=== PATIENT | female | born 1990 | race Two or more races ===

== ENCOUNTER 2022-05-30 19:57 | Emergency (ER) | payer MEDICAID, OTHER ==
[~2022-05-30] VITALS: Ht 170.2 cm; Wt 90.9 kg
[2022-05-30 20:27] VITALS: BP 133/76
[2022-05-30 21:46] LABS: Basophils # (auto) 0 10 ^3/uL (0-0.2); Basophils % (auto) 0.4 % (0.0-2.0); Eosinophils # (auto) 0.2 10 ^3/uL (0-0.8); Eosinophils % (auto) 2.4 % (0.0-7.0); Hematocrit 40.3 % (36.0-46.0); Hemoglobin 14.2 g/dL (12.2-16.2); Lymphocytes # (auto) 3.6 10 ^3/uL (0.4-5.4); Lymphocytes % (auto) 46.4 % (10.0-50.0); Mean Corpuscular Hemoglobin 31.2 pg (28.0-32.0); Mean Corpuscular Hgb Conc. 35.2 g/dL (32.0-36.0); Mean Corpuscular Volume 88.7 fL (80.0-100.0); Monocytes # (auto) 0.6 10 ^3/uL (0-1.3); Monocytes % (auto) 7.9 % (0.0-12.0); Neutrophils # (auto) 3.3 10 ^3/uL (1.6-8.6); Neutrophils % (auto) 42.9 % (37.0-80.0); Nucleated Red Blood Cells % 0.1 %; Red Blood Cells 4.54 10^6/uL (4.0-5.20); Red Cell Distribution Width 12.6 % (11.8-14.3); White Blood Cell 7.8 10^3/uL (4.4-10.8)
[2022-05-30 22:03] LABS: Albumin 3.6 g/dL (3.4-5.0); BUN/Creatinine Ratio 18.8 (10.0-20.0); Calcium 9.3 mg/dL (8.5-10.1); Magnesium 2.2 mg/dL (1.6-2.6); Potassium 3.6 mmol/L (3.5-5.1)
[2022-05-30 22:05] LABS: Bilirubin, Total 0.3 mg/dL (0.2-1.0); Total Protein 7.8 g/dL (6.4-8.2)
[2022-05-31 02:41] LABS: Urine Bacteria MANY /hpf (None Seen); Urine Blood 2+ /uL (Negative); Urine Mucus FEW (None Seen); Urine Specific Gravity 1.014 (1.001-1.035); Urine WBC 56 /hpf (0 - 5)
== END 2022-05-31 00:42 | disposition left against medical advice (07) ==
LOC: ER 19:57
DX: R00.2 Palpitations (principal)
CPT/HCPCS: 36415; 71045; 80053; 81001; 83735; 84484; 85025; 93005

== ENCOUNTER 2024-05-08 03:28 | Emergency (ER) | payer MEDICAID ==
[~2024-05-08] VITALS: Ht 170.2 cm; Wt 98.6 kg
--- NOTE | 2024-05-08 04:04 | ED.PDOC ---
History of Present Illness HPI Comments 33 y/o obese F presents with c/o non-radiating, bilateral pelvic and suprapubic abdominal pain, with associated nausea, today. Patient endorses on sudden and unprovoked onset of symptoms, with no prior history of, this morning, at 0250. She reports on Ibuprofen use prior to arrival, with no improvement or relief. Patient only reports significant history of cholecystectomy and denies any recent injuries, sick contact, spoiled food, or travel along with current . Patient denies any vomiting, diarrhea, urinary symptoms, fever, chills, or other associated symptoms or modifiers at this time. Chief Complaint: Pelvic Pain Time Seen by MD: 03:50 Reviewed Notes: Nurses Notes, Medications, Allergies Allergies: Coded Allergies: NO KNOWN ALLERGIES (Unverified , 05/30/22) Information Source: Patient Mode of Arrival: Ambulatory Severity: Moderate Timing: Hours Duration: Since onset Prehospital treatment: Pain Meds (Ibuprofen) Past Medical History PAST MEDICAL HISTORY: Denies Past Medical History (Other): obesity Surgical History: Cholecystectomy CLIENT ENGAGEMENT SPECIALIST History: Denies all CLIENT ENGAGEMENT SPECIALIST Hx Family History Family History: Reviewed,noncontributory to illness Social History Smoker: Non-Smoker Alcohol: Denies ETOH Use Drugs: Denies Drug Use Lives In: Home All Other Systems: Reviewed and Negative (Comprehensive systems review obtained and negative except for what is stated in the HPI.) Physical Exam General Appearance: Moderate Distress, Obese HEENT: Normal ENT Inspection, Pharynx Normal, TMs Normal Neck: Full Range of Motion, Non-Tender, Normal, Normal Inspection Respiratory: Chest Non-Tender, Lungs Clear, No Accessory Muscle Use, No Respir atory Distress, Normal Breath Sounds Cardiovascular: No Edema, No JVD, No Murmur, No Gallop, Normal Peripheral Pulses, Regular Rate/Rhythm Breast Exam: Deferred Gastrointestinal: No Organomegaly, Non Tender, No Pulsatile Mass, Normal Bowel Sounds, Soft Genitalia: Deferred Pelvic: Deferred Rectal: Deferred Extremities: No calf tenderness, Normal capillary refill, Normal inspection, Normal range of motion, Non-tender, No pedal edema Musculoskeletal : Apperance: Normal Neurologic: Alert, head of history II-XII nml as Tested, No Motor Deficits, Normal Affect, Normal Mood, No Sensory Deficits Cerebellar Function: Normal Reflexes: Normal Skin: Dry, Normal Color, Warm Peripheral Pulses: 3+ Radial (R), 3+ Radial (L) Lymphatic: No Adenopathy Was a procedure done? Was a procedure done?: No Differential Dx Considerations may include: ovarian cysts, ovarian torsion, , ectopic , PID, musculo skeletal pain, cystitis, pyelonephritis, nephrolithiasis, appendicitis, diverticulitis, among others X-Ray, Labs, Meds, VS Vital Signs Date Time Temp Pulse Resp B/P (MAP) Pulse Ox O2 Delivery O2 Flow Rate FiO2 05/08/24 08:05 66 18 96 Room Air* 0 21 05/08/24 08:05 98.1 66 18 114/61 (78) 96 98.1 05/08/24 06:54 97.9 65 12 112/62 (79) 97 97.9 05/08/24 03:36 98.2 100 20 136/73 (94) 97 98.2 Lab Test 05/08/24 05:33 05/08/24 04:02 Range/Units Urine Color Yellow Yellow Urine Clarity Ex.turbid Clear Urine pH 5.5 5.0-9.0 Urine Specific [place] 1.027 1.001-1.035 Urine Protein Trace H Negative Urine Ketones Negative Negative Urine Blood Negative Negative /uL Urine Nitrite Negative Negative Urine Bilirubin Negative Negative Urine Urobilinogen Normal Negative mg/dL Urine Leukocyte Esterase 1+ Negative /uL Urine RBC 4 0 - 4 /hpf Urine Microscopic WBC 6 H 0-5 /HPF Urine Squamous Epithelial Cells Mod <5 /hpf Urine Bacteria Few H None Seen /hpf Urine Mucus Few None Seen Urine Glucose Normal Normal mg/dL Urine Test Negative Negative White Blood Count 8.2 4.4-10.8 10^3/uL Red Blood Count 4.56 4.0-5.20 10^6/uL Hemoglobin 14.5 12.2-16.2 g/dL Hematocrit 42.0 36.0-46.0 % Mean Corpuscular Volume 92.2 80.0-100.0 fL Mean Corpuscular Hemoglobin 31.8 28.0-32.0 pg Mean Corpuscular Hemoglobin Concent 34.5 32.0-36.0 g/dL Red Cell Distribution Width 12.5 11.8-14.3 % Platelet Count 264 140-450 10^3/uL Mean Platelet Volume 9.4 6.9-10.8 fL Neutrophils (%) (Auto) 47.9 37.0-80.0 % Lymphocytes (%) (Auto) 39.7 10.0-50.0 % Monocytes (%) (Auto) 9.6 0.0-12.0 % Eosinophils (%) (Auto) 2.4 0.0-7.0 % Basophils (%) (Auto) 0.4 0.0-2.0 % Neutrophils # (Auto) 3.9 1.6-8.6 10 ^3/uL Lymphocytes # (Auto) 3.2 0.4-5.4 10 ^3/uL Monocytes # (Auto) 0.8 0-1.3 10 ^3/uL Eosinophils # (Auto) 0.2 0-0.8 10 ^3/uL Basophils # (Auto) 0 0-0.2 10 ^3/uL Nucleated Red Blood Cells 0.1 % Sodium Level 137 136-145 mmol/L Potassium Level 4.0 3.5-5.1 mmol/L Chloride Level 105 98-107 mmol/L Carbon Dioxide Level 25 20-31 mmol/L Anion Gap 7 5-15 Blood Urea Nitrogen 12 9-23 mg/dL Creatinine 0.84 0.550-1.02 mg/dL Glomerular Filtration Rate Calc 93 >90 mL/min BUN/Creatinine Ratio 14.3 10.0-20.0 Serum Glucose 98 74-106 mg/dL Calcium Level 9.5 8.7-10.4 mg/dL Patient alert. Complaining of suprapubic discomfort. On examination abdomen is soft nontender. Vitals stable. Answering all questions. Heart rate within normal limits. Blood pressure within normal limits. CT scan of the abdomen was not done because the physical exam is when pristine. Ultrasound was not done because physical examination did not point to any abnormality. Urinalysis shows UTI. Was given prescription of Macrobid antibiotic. Saturation pristine on room air. Ambulating without difficulty. No sign of any ovarian disease. Was told to follow up with her primary care physician. Was told to come back if there is any problem. Time of 1ST Reevaluation: 04:20 Reevaluation 1ST: Unchanged Time of 2ND Reevaluation: 09:38 Reevaluation 2ND: Improved Patient Education/Counseling: Diagnosis, Treatment Family Education/Counseling: No Family Present Additional Information Previous visit documents reviewed: May 30, 2022 encounter for palpitations The following tests were ordered, and results were reviewed by me: urine test, UA, CBC, BMP Additional Information was gathered from interviewing the following independent historians: n/a I reviewed and agreed with the following test results read by other providers: n/a I discussed treatment and results with medical personnel and: Patient Departure 1 Departure Time of Disposition: 09:39 Impression: Primary Impression: Urinary tract infection Qualified Codes: N30.00 - Acute cystitis without hematuria Disposition: HOME / SELF CARE / HOMELESS Condition: Good e-Prescriptions Nitrofurantoin Monohydrate Mac (Macrobid) 100 Mg Cap 100 MG PO BID for 7 Days, #14 CAP Prov: ROSEANN FLANAGAN MD 05/08/24 Discharged With: Self Critical Care Note Critical Care Time?: No Stability Stability form required: No Heart Score Heart Score: Heart Score Response (Comments) Value History N/A 0 EKG N/A 0 Age N/A 0 Risk Factors N/A 0 Troponin N/A 0 Total 0 I personally scribed for MORALES MCGUIRE MD ([email or web address]) on 05/08/24 at 04:04. Electronically submitted by Benjamin Abdi ([email or web address]). MORALES MCGUIRE MD May 08, 2024 04:04 ROSEANN FLANAGAN MD May 08, 2024 09:40
[2024-05-08 04:26] LABS: Basophils # (auto) 0 10 ^3/uL (0-0.2); Basophils % (auto) 0.4 % (0.0-2.0); Eosinophils # (auto) 0.2 10 ^3/uL (0-0.8); Eosinophils % (auto) 2.4 % (0.0-7.0); Hemoglobin 14.5 g/dL (12.2-16.2); Lymphocytes # (auto) 3.2 10 ^3/uL (0.4-5.4); Lymphocytes % (auto) 39.7 % (10.0-50.0); Mean Corpuscular Hemoglobin 31.8 pg (28.0-32.0); Mean Corpuscular Hgb Conc. 34.5 g/dL (32.0-36.0); Mean Corpuscular Volume 92.2 fL (80.0-100.0); Monocytes # (auto) 0.8 10 ^3/uL (0-1.3); Monocytes % (auto) 9.6 % (0.0-12.0); Neutrophils # (auto) 3.9 10 ^3/uL (1.6-8.6); Neutrophils % (auto) 47.9 % (37.0-80.0); Nucleated Red Blood Cells % 0.1 %; Platelet Count (auto) 264 10^3/uL (140-450); Red Blood Cells 4.56 10^6/uL (4.0-5.20); Red Cell Distribution Width 12.5 % (11.8-14.3); White Blood Cell 8.2 10^3/uL (4.4-10.8)
[2024-05-08 04:36] LABS: Chloride 105 mmol/L (98-107); Sodium 137 mmol/L (136-145)
[2024-05-08 04:37] LABS: Anion Gap 7 (5-15); Carbon Dioxide 25 mmol/L (20-31)
[2024-05-08 04:38] LABS: Calcium 9.5 mg/dL (8.7-10.4)
[2024-05-08 04:42] LABS: BUN/Creatinine Ratio 14.3 (10.0-20.0); Blood Urea Nitrogen 12 mg/dL (9-23); Glucose 98 mg/dL (74-106)
[2024-05-08 07:04] LABS: Urine Bacteria FEW /hpf (None Seen); Urine Blood Negative /uL (Negative); Urine Clarity Ex.Turbid (Clear); Urine Color Yellow (Yellow); Urine Mucus FEW (None Seen); Urine Protein, UAD TRACE (Negative); Urine Specific Gravity 1.027 (1.001-1.035); Urine Squamous Epithelial Cell MOD /hpf (<5); Urine Urobilinogen Normal (Negative); Urine WBC 6 /HPF (0-5); Urine pH 5.5 (5.0-9.0)
[2024-05-08 08:05] VITALS: PULSE 66; RESP 18; O2SAT 96
[2024-05-08] MEDS ORDERED: NITR-87 PO (09:40)
[2024-05-08 10:26] VITALS: BP 119/73; PULSE 71; RESP 18; TEMP 98.2; O2SAT 98
[2024-05-08] MEDS: KETOROLAC TROMETH 60MG/2ML VIAL IM ONE (10:30)
--- NOTE | 2024-05-08 10:46 | DVH ---
TRANSABDOMINAL AND ENDOVAGINAL PELVIC ULTRASOUND CLINICAL HISTORY: ovarytorsioncyst TECHNIQUE: Multiple transabdominal and endovaginal grayscale sonographic images of the pelvis were obtained. Comparison: None FINDINGS: The uterus measures 9.0 x 5.5 x 4.5 cm. The uterine myometrium appears homogeneous. There is no evid ence of a fibroid.. The endometrial stripe appears prominent measuring 16 mm, but appears homogeneou s. Right ovary measures 3.0 x 2.6 x 3.1 cm. Left ovary measures 3.4 x 2.9 by 3.8 cm. There is a 1.9 by 2 .4 cm dominant follicle in the left ovary. The ovaries otherwise appear within normal limits with juan carlos ropriate arterial flow. There is no evidence of an adnexal mass. There is no free fluid in the cul-de-sac and right adnexa. IMPRESSION: 1. The endometrial stripe is prominent in size which May relate to secretory phase endometrium. 2. 1.9 x 2.4 cm dominant follicle in the left ovary. 3. There is free fluid in the cul-de-sac and right adnexa. HS:Y
== END 2024-05-08 13:38 | disposition home or self-care (01) ==
LOC: ER 03:28
DX: N39.0 Urinary tract infection, site not specified (principal); E66.9 Obesity, unspecified; Z90.49 Acquired absence of other specified parts of digestive tract; Z88.6 Allergy status to analgesic agent
CPT/HCPCS: 36415; 76830; 76856; 80048; 81001; 81025; 85025; 96372; 99285; J1885